=== PATIENT | female | born 1945 | race Caucasian/White ===

== ENCOUNTER 2016-08-25 07:40 | Day surgery (SDC) | payer MEDICARE ==
[~2016-08-25] VITALS: Ht 160 cm; Wt 89.0 kg
[~2016-08-25 07:40] MED LIST: ASPI-973 PO; IPRA15SP NS; LISI-567 PO; METO25TA99 PO; MULT-1093 PO; OMEP20CA11 PO; UBID100C PO
[2016-08-25] MEDS ORDERED: Propofol 10,000 mCg/mL 20 mL Inj ONE (07:41)
[2016-08-25] MEDS ORDERED: fentaNYL-PF 50 mCg/mL 2 mL Inj ONE (07:41)
[2016-08-25 07:58] VITALS: BP 169/83; PULSE 68; RESP 18; O2SAT 100
[2016-08-25] MEDS: Lactated Ringer's 1,000 ML IV ONE ×2 (08:46→08:51)
[2016-08-25 09:02] VITALS: BP 135/77; PULSE 67; RESP 14; O2SAT 97
--- NOTE | 2016-08-25 09:02 | PCM.HPANE ---
Patient Data Date of Service: Aug 25, 2016 (0830) Surgeon Admitting Provider: Attending Provider:Tom Adler MD Primary Care Physician:Miracle Hassan Other Provider:Debbie Brody Anesthesia Reason for Visit Diverticulitis Large Intestine Ht/WT & BMI Height (Feet): 5 Height (Inches): 3 Weight (Kilograms): 89 Body Mass Index 34.00 Allergies Coded Allergies: codeine (Verified Allergy, Unknown, NAUSEA, 12/18/13) Uncoded Allergies: CODEINE (Generic Allergy) (Allergy, Unknown, Y, 03/09/05) Past Anesthesia History Anesthesia History: Denies:: Abnormal Airway, Anesthesia Reactions, Difficult Intubation, Fam Anesthesia Reaction, Fam Malignant Hypertherm, Malignant Hyperthermia Diabetes History Hx Diabetes?: No Medications Home Meds Incl Beta Dione: Yes Date Beta Dione Taken: Aug 24, 2016 Time Beta Dione Taken: 0900 Reported Medications Omeprazole 20 Mg Capsule.dr20 Mg PO DAILY Ref 0 08/24/16 Multivitamin-Min/Iron/FA/Vit K (Multi-Day Plus Minerals Tablet)18 Mg Iron-400 Mcg-25 Mcg Tablet1 Each PO 08/24/16 Metoprolol Succinate ER 25 Mg Tab.er.24h25 Mg PO DAILY Ref 0 08/24/16 Lisinopril 20 Mg Bgnhhm69 Mg PO DAILY 30 Days Ref 0 08/24/16 Ubidecarenone (Coenzyme Q10)100 Mg [id number] Mg PO 08/24/16 Aspirin 81 Mg Bzdnbc86 Mg PO DAILY Ref 0 08/24/16 Discontinued Reported Medications Ipratropium Hanna (Ipratropium Hanna 0.06% Nasal)15 Ml Spray1 [place] TID # 1 BOTTLE Ref 0 08/24/16 History HEENT History: Denies:: Abnormal Airway Difficult Intubation Dysphagia Hearing Problem Hx of Heart Problems?: Yes Cardiovascular History: Positive for:: Hypertension Other Cardiac History: 2 CARDIAC STENTS Hx of Respiratory Problem?: No Hx of GI Problems?: Yes Gastrointestinal History: Positive for:: Diverticulitis Gall Bladder Disease Denies:: Cirrhosis Gastroesphageal Reflux Hiatal Hernia Liver Disease Rectal Bleeding Female Hx: Denies:: Currently Musculoskeletal History: Denies:: Fibromyalgia Joint Replacement Psycho Social History: Denies:: Anxiety Hx Depression Hx Surgeries?: Yes (GALLBLADDER,2 CARDIAC STENTS) Hx Any Other Health Problems?: No History Blood Transfusions: Denies:: Blood Transfuse Reaction Blood Transfusions Hx Diabetes: No Hx Alcohol Use: YesHx Substance Use: NoHave You Smoked inLast 12 mo: Yes Stop/Bang Treated for Sleep Apnea?: No Do You Have a CPAP Machine?: No S-Snoring: Do You Snore Loudly: No O-Obsered: Observed not breath: No P-Blood Pressure: treated: Yes B- Body Mass Index > 35 kg/m2: Yes A- Age over 50: Yes N- Neck Large Circumference: No G- Gender Male: No Risk Assessment Category Category 1A: Patient has history of documented sleep apnea, and HAS NOT received any narcotic, sedative or anesthesia administration during this stay. Category 1B: Patient has history of documented sleep apnea, and HAS received any narcotic , sedative or anesthesia administration during this stay Category 2: Patient has SUSPECTED Obstructive Sleep Apnea, and HAS received any narcotic , sedative or anesthesia administration during this stay. Category 3: Patient has SUSPECTED Obstructive Sleep Apnea and HAS NOT received narcotic, sedative or anesthesia administration during this stay. Category 4: Outpatient in Procedural Areas with known sleep apnea or who screen positive for High Risk via the STOP/BANG questionnaire. Exam Exam Vital Signs Vital Signs Date Time Temp Pulse Resp B/P Pulse Ox O2 Delivery O2 Flow Rate FiO2 08/25/16 07:58 36.8 68 18 169/83 100 Room Air General Appearance: Alert, Oriented X3, Cooperative, No Acute Distress HEENT/AIRWAY: MP 2 Lungs: Clear to Auscultation, Normal Air Movement Heart: Exam Unremarkable, Regular Rate/Rhythm, No Murmurs/Rubs/Gallops Meds/Labs/Diagnostics Admission Meds Current Medications Lactated Ringer's (Lr) 1,000 ml @ 10 mls/hr Q24H ONCE IV Last administered on 08/25/16t 08:51; Start 08/25/16 at 06:00; Stop 08/26/16 at 05:59 Plan Impression Patient chart reviewed, patient interviewed and anesthestic plan with risks, benefits, and alternatives discussed, and informed consent obtained. ASA Physical Status: ASA3 Severe Disease (CAD) Anesthetic Plan: MAC Bene/Risks/Altern/Consents: Yes HP Complete Prior to Induction: Yes Richie Valadez MD Aug 25, 2016 09:02
--- NOTE | 2016-08-25 09:02 | PCM.ANEP2 ---
Post Anesthesia Evaluation ASA/CMS Post Anesthesia VS in Patient's Normal Range?: Yes Resp Stable; Airway Patent?: Yes CV Function & Hydration Stable: Yes Mental Status Recovered?: Yes Pain control Satisfactory?: Yes N/V Control Satisfactory?: Yes Richie Valadez MD Aug 25, 2016 09:02
[2016-08-25 09:08] VITALS: BP 147/89; PULSE 67; RESP 14; O2SAT 99
--- NOTE | 2016-08-25 10:56 | ENDO ---
[address] [address] ENDOSCOPY PROCEDURE PATIENT: LISY PONCE : 1945 MR#: [id number] ADMIT: 08/25/2016 JOB ID: [id number] DATE: 08/25/2016 TYPE OF OPERATION: Colonoscopy. PREOPERATIVE DIAGNOSIS(ES): History of diverticulitis. POSTOPERATIVE DIAGNOSIS(ES): 1. Diverticulosis seen moderate in the sigmoid, descending, transverse and ascending colon. 2. Small internal hemorrhoids. ANESTHESIA: Monitored anesthesia care. COMPLICATIONS: None. BLOOD LOSS: Minimal. DESCRIPTION OF PROCEDURE: After the risks and benefits were explained to the patient, informed consent was obtained. After anesthesia administered, colonoscope was inserted from the rectum to the cecum. Mucosa carefully examined. Prep of the patient was excellent. After the procedure was done, the scope was withdrawn and the procedure terminated. FINDINGS: Upon inspection of the anus, no masses, hemorrhoids, ulcers, fissures that were seen. Throughout the entire examination, there was parsons diverticulosis seen in the ascending colon, transverse, descending colon and sigmoid colon. It was moderate. No polyps or masses were seen. Retroflexion showed small internal hemorrhoids. IMPRESSION: 1. Parsnos diverticulosis of the ascending, descending, transverse and sigmoid colon. 2. Small internal hemorrhoids. RECOMMENDATION: 1. High-fiber diet. 2. Repeat colonoscopy in 10 years for colorectal cancer screening.
== END 2016-08-25 23:59 | disposition home or self-care (01) ==
LOC: END 07:40
PROVIDERS: ATTEND Internal Medicine Gastroenterology
DX: K57.32 Diverticulitis of large intestine without perforation or abscess without bleeding (principal); K64.8 Other hemorrhoids; I10 Essential (primary) hypertension; I25.10 Atherosclerotic heart disease of native coronary artery without angina pectoris; K21.9 Gastro-esophageal reflux disease without esophagitis; K44.9 Diaphragmatic hernia without obstruction or gangrene; E78.5 Hyperlipidemia, unspecified; E66.9 Obesity, unspecified; G47.30 Sleep apnea, unspecified; F17.210 Nicotine dependence, cigarettes, uncomplicated; Z68.34 Body mass index [BMI] 34.0-34.9, adult; Z95.5 Presence of coronary angioplasty implant and graft; Z79.82 Long term (current) use of aspirin